=== PATIENT | male | born 1995 | race Caucasian/White ===

== ENCOUNTER 2017-04-04 23:02 | Emergency (ER) | payer SELFPAY ==
[~2017-04-04] VITALS: Ht 190.5 cm; Wt 78.6 kg
[2017-04-04 23:11] VITALS: BP 152/91; TEMP 99
[2017-04-04 23:47] VITALS: PULSE 90
== END 2017-04-04 23:49 | disposition home or self-care (01) ==
LOC: COL.ER 23:02
DX: J11.1 Influenza due to unidentified influenza virus with other respiratory manifestations (principal)

== ENCOUNTER → 2017-07-08 | Outpatient (CLI) | payer SELFPAY | LOC: COL.RAD 08:50 | DX: R07.81 Pleurodynia (principal) | CPT/HCPCS: A9503 ==